=== PATIENT | female | born 1985 | race Caucasian/White ===

== ENCOUNTER 2020-06-13 19:44 | Observation (INO) | payer OTHER ==
[2020-06-13] MEDS: Lactated Ringer's 1,000 ML IV SCH (20:44)
[2020-06-13] MEDS ORDERED: Terbutaline Sulfate 1 MG/ML VIAL SC PRN (23:32)
[2020-06-13] MEDS ORDERED: hydrOXYzine Pamoate 25 mg Capsule PO PRN (23:32)
[2020-06-13] MEDS ORDERED: hydrALAZINE 20 MG/ML VIAL SLOW IVP PRN (23:43)
[2020-06-13] MEDS ORDERED: Acetaminophen 500 MG TAB PO PRN (23:43)
[2020-06-13] MEDS ORDERED: Butorphanol Tartrate 1 MG/ML VIAL SLOW IVP PRN (23:43)
[2020-06-13] MEDS ORDERED: Promethazine HCl 25 MG/ML VIAL IM PRN (23:43)
[2020-06-13] MEDS ORDERED: Ondansetron PF 4 MG/2 ML Vial IVP PRN (23:43)
[2020-06-14] MEDS: Lactated Ringer's 1,000 ML IV SCH ×2 (01:24→06:05)
[2020-06-14 04:03] VITALS: BMI 28.3
[2020-06-14 09:19] LABS: SARS-CoV-2 MS2 Positive; SARS-CoV-2 N Gene Negative; SARS-CoV-2 S Gene Negative; SARS-CoV-2 by NAA Not Detected (NotDetected); SARS-CoV-2 orf1ab Negative
--- NOTE | 2020-06-14 12:17 | PDOC.LDHP ---
Labor and Delivery H&P HPI: 34 y/o G2 P 1001 at 34 and 3 weeks presents after a fall outside on the porch letting her new dog out. No vaginal bleeding. Her abdomen was struck from the side. Good movement. No contractions felt on admission. Current gestational age (weeks): 34 Grav: 2 Para: 1 Abnormal US findings: No Current medications: pre-graham vitamins Allergies/Adverse Reactions: Allergies Allergy/AdvReac Type Severity Reaction Status Date / Time sulfamethoxazole Allergy Verified 06/13/20 23:39 [From Bactrim] trimethoprim [From Bactrim] Allergy Verified 06/13/20 23:39 Social history: none - Physical Exam Vital signs reviewed and normal: yes General: NAD, resting Heart: RRR Lungs: CTAB Abdomen: gravid Extremeties: no edema FHT: category 1 - Plan Plan: admit to L&D, other (Patient will be monitored for 4 hours, DC to home if atable. Thus far, no definitive reason for an ultrasound tonight, but I will do one later this week in clinic if patient/fetus remain stable.)
== END 2020-06-14 11:00 | disposition home health service (06) ==
LOC: L&D/OP 19:44 → L&D-LIB 06-14 03:57 → INTOOBSV 06-14 03:57
PROVIDERS: ADMIT Obstetrics & Gynecology; ATTEND Obstetrics & Gynecology
DX: Z04.3 Encounter for examination and observation following other accident (principal); Z3A.34 34 weeks gestation of pregnancy; Z88.1 Allergy status to other antibiotic agents; Z88.2 Allergy status to sulfonamides; Z20.828 Contact with and (suspected) exposure to other viral communicable diseases; W19.XXXA Unspecified fall, initial encounter
CPT/HCPCS: 36415; 87635; 99285; J3105; Q0177; U0003

== ENCOUNTER 2020-07-07 15:49 | Day surgery (SDC) | payer OTHER ==
[2020-07-07 16:20] VITALS: BMI 27.9
[2020-07-07] MEDS ORDERED: hydrALAZINE 20 MG/ML VIAL SLOW IVP PRN (16:41)
--- NOTE | 2020-07-07 17:06 | PDOC.LDHP ---
Labor and Delivery H&P Chief complaint: contractions HPI: 34 y/o at 37w6d, patient of Dr. Sarmiento, presents with ctx q3mins since 1am. Denies VB, LOF, or decreased FM. ROS neg for HEENT, cv, pulm, gi, gu, neuro, psych, skin, musculoskeletal or constitutional symptoms other than mentioned above. OB History Details: 1 8 years ago Current complications: none Past Medical History: None Current medications: pre- vitamins Previous surgical history: other (dental surgery) Allergies/Adverse Reactions: Allergies Allergy/AdvReac Type Severity Reaction Status Date / Time sulfamethoxazole Allergy Verified 06/13/20 23:39 [From Bactrim] trimethoprim [From Bactrim] Allergy Verified 06/13/20 23:39 - Physical Exam Vital signs reviewed and normal: yes General: NAD Lungs: nonlabored breathing Abdomen: gravid Extremeties: no edema FHT: category 1 (140s, mod variability, + accels, no decels) [place] contractions every: 23 mins - Vaginal Exam cm dilated: 4 (unchanged over 1 hour) Effacement: 75% Station: -3 - Assessment 34 y/o at 37w6d with no e/o active labor. status reassuring with reactive NST. - Plan -: D/c home with precautions. Advised to keep all appointments.
== END 2020-07-07 17:45 | disposition home or self-care (01) ==
LOC: L&D/OP 15:49
PROVIDERS: ATTEND Obstetrics & Gynecology
DX: O47.1 False labor at or after 37 completed weeks of gestation (principal); Z3A.37 37 weeks gestation of pregnancy; Z88.2 Allergy status to sulfonamides
CPT/HCPCS: 99282

== ENCOUNTER 2020-07-11 06:41 | Day surgery (SDC) | payer OTHER ==
[2020-07-11 07:09] VITALS: BMI 27.9
[2020-07-11] MEDS ORDERED: hydrALAZINE 20 MG/ML VIAL SLOW IVP PRN (08:19)
--- NOTE | 2020-07-11 08:43 | PRG ---
DATE OF SERVICE: 07/11/2020 PRIMARY OB: Dr. Mann Sarmiento. CHIEF COMPLAINT: Abdominal pains. HISTORY OF PRESENT ILLNESS: The patient is a 34-year-old, G2, P1 female with an intrauterine at 38 weeks and 3 days, presenting to Labor and Delivery with new onset abdominal pains over the last several days. She reports that today the pains have gotten stronger and came for evaluation. She was last seen here on the 07 of July, was noted to be 4 cm dilated, 75% effaced at the time. The patient denies leakage of fluid or vaginal bleeding. She denies fever, cough, headache, chest pain, shortness of breath, nausea, vomiting, diarrhea, constipation, hip problems, knee problems, muscle weakness. She denies any new rashes. She denies again vaginal bleeding, leakage of fluid, urinary urgency or frequency. PAST MEDICAL HISTORY: Negative. PAST SURGICAL HISTORY: Negative. ALLERGIES: BACTRIM. MEDICATIONS: vitamins. OB LABS: Unavailable at the time of dictation. REVIEW OF SYSTEMS: Per HPI. SOCIAL HISTORY: Denies drug, alcohol, or tobacco use. PHYSICAL EXAMINATION: VITAL SIGNS: Blood pressure is 124/78, heart rate is 75, respiratory rate of 18, saturating 99% on room air. GENERAL: She appears to be in no acute distress. She is sitting up on a birthing ball. HEENT: Her head is normocephalic and atraumatic. LUNGS: Clear to auscultation bilaterally. HEART: Regular rate and rhythm. ABDOMEN: Gravid and soft. She has no CVA tenderness. EXTREMITIES: Nontender. : Exam per nursing staff is 475 and -3 station. heart tracing shows the fetus with a baseline in the 120s with moderate long-term variability, positive 15 x 15 accelerations, no decelerations. Contractions are visible at about every 4 to 5 minutes. ASSESSMENT AND PLAN: The patient is a 34-year-old G2, P1 female with an intrauterine at 38 weeks and 3 days, here for evaluation of labor. Fetus has a category 1 tracing and reactive NST. Cervical exam is unchanged from her last visit about four days ago. We will recheck her in about 3 hours to see if there is any cervical change and will make disposition at that time. Dr. Nash is the oncoming physician who will be taking over care. Job ID: [id number]
--- NOTE | 2020-07-11 09:58 | PDOC.EVN ---
Event Note - Event Note Event Note: Report received earlier from Dr. Kahn. Term IUP at 4 cm with UCs. OBS x3 hours, no cervical change noted. FHTs stable. Will Dc home. Has appt. with Dr. Sarmiento later today. Precautions reviewed.
== END 2020-07-11 10:19 | disposition home or self-care (01) ==
LOC: L&D/OP 06:41
PROVIDERS: ATTEND Obstetrics & Gynecology
DX: O99.891 Other specified diseases and conditions complicating pregnancy (principal); R10.9 Unspecified abdominal pain; Z3A.38 38 weeks gestation of pregnancy; Z88.2 Allergy status to sulfonamides
CPT/HCPCS: 99282

== ENCOUNTER 2020-07-11 22:19 | Inpatient (IN) | payer OTHER ==
[~2020-07-11 22:19] MED LIST: Bupivacaine 0.25% HCL 30 ML VIAL ONE
[2020-07-11] MEDS: Lactated Ringer's 1,000 ML IV SCH (23:00)
[2020-07-11] MEDS ORDERED: Lidocaine 1% (PF) 30 ML VIAL ONE (23:44)
[2020-07-11] MEDS ORDERED: NS w/ Oxytocin 30 units 500 ML ONE (23:45)
[2020-07-11 23:47] VITALS: BMI 28.8
[2020-07-11 23:54] LABS: Mean Corpuscular HGB CONC 31.7 g/dL (32.0-36.0); Mean Corpuscular Hemoglobin 25.5 pg (27.0-31.0); Mean Corpuscular Volume 80.3 fL (78.0-98.0); Mean Platelet Volume 9.5 fL (7.4-10.4); Platelet Count 212 thou/uL (130-400); RBC Distribution Width 14.9 % (11.5-14.5); Red Blood Cell (RBC) Count 3.91 mill/uL (4.20-5.40); White Blood Cell (WBC) Count 9.5 thou/uL (4.8-10.8)
[2020-07-11] MEDS ORDERED: Fentanyl 4 mcg/Bup 0.1% Cadd 100 ML ONE (23:54)
[2020-07-12] MEDS ORDERED: Misoprostol 200 MCG TAB RC PRN (00:15)
[2020-07-12] MEDS ORDERED: hydrALAZINE 20 MG/ML VIAL SLOW IVP PRN ×2 (00:15→05:41)
[2020-07-12] MEDS ORDERED: Carboprost 250 MCG/ML AMP IM PRN (00:15)
[2020-07-12] MEDS ORDERED: HYDROcodone/Acetaminophen 5/325 mg Tablet PO PRN ×4 (00:15→05:41)
[2020-07-12] MEDS ORDERED: NS w/ Oxytocin 30 units 500 ML IV SCH ×3 (00:15→06:00)
[2020-07-12] MEDS ORDERED: Ondansetron PF 4 MG/2 ML Vial IVP PRN ×2 (00:15→05:41)
[2020-07-12] MEDS ORDERED: Ibuprofen 800 MG TAB PO PRN (00:15)
[2020-07-12] MEDS ORDERED: Lidocaine 1% (PF) 30 ML VIAL SC PRN (00:15)
[2020-07-12] MEDS ORDERED: Methylergonovine 0.2 MG/ML VIAL IM PRN ×2 (00:15→05:41)
[2020-07-12] MEDS ORDERED: Promethazine HCl 25 MG/ML VIAL IM PRN ×2 (00:15→05:41)
[2020-07-12] MEDS ORDERED: Diphenoxylate HCl/Atropine Tablet PO PRN ×2 (00:15)
[2020-07-12] MEDS ORDERED: NS / Oxytocin 40 units/1000ml 1,000 ML IV SCH (00:15)
[2020-07-12 00:31] LABS: Syphilis Antibody Nonreactive (Nonreactive); Syphilis Antibody Index 0.05 S/CO (<1.00 Non-Reactive)
[2020-07-12 00:32] LABS: HBSAg Index 0.21 S/CO (0-0.99); Hep B Surf Ag Non-Reactive S/CO (NonReactive)
[2020-07-12] MEDS: Lactated Ringer's 1,000 ML IV SCH (01:20)
[2020-07-12] MEDS ORDERED: diphenhydrAMINE 25 MG CAP PO PRN (05:41)
[2020-07-12] MEDS ORDERED: Zolpidem Tartrate 5 MG TAB PO PRN (05:41)
[2020-07-12] MEDS ORDERED: Lanolin Ointment 7 GM TUBE TOP PRN (05:41)
[2020-07-12] MEDS ORDERED: Milk Of Magnesia 30 ML UDCUP PO PRN (05:41)
[2020-07-12] MEDS ORDERED: Benzocaine-Menthol 82.5 ML CAN TOP PRN (05:41)
[2020-07-12] MEDS ORDERED: Misoprostol 200 MCG TAB VAG PRN (05:41)
[2020-07-12] MEDS ORDERED: Varicella virus, LIVE 0.5 ML VIAL SC ONE (05:41)
[2020-07-12] MEDS ORDERED: Preparation H Ointment 28 GM TUBE PR PRN (05:41)
[2020-07-12] MEDS ORDERED: Bisacodyl 10 MG SUPP PR PRN (05:41)
[2020-07-12] MEDS ORDERED: Ibuprofen 800 MG TAB PO SCH (06:00)
[2020-07-12] MEDS ORDERED: Measles/Mumps/Rubella 10 MCG/0.5 ML VIAL SC ONE (06:00)
[2020-07-12] MEDS ORDERED: Docusate Calcium (SURFAK) 240 MG CAP PO SCH (09:00)
[2020-07-12] MEDS ORDERED: Adacel (T-DAP) 0.5 ML SYRINGE IM ONE (09:00)
[2020-07-12] MEDS ORDERED: Prenatal Vitamin 1 TAB PO SCH (09:00)
[2020-07-12] MEDS: Ferrous Sulfate 325 MG TAB PO SCH ×2 (09:13→17:49)
[2020-07-12 16:57] LABS: SARS-CoV-2 NAA Rapid Test Not Detected (NotDetected)
--- NOTE | 2020-07-12 17:43 | PDOC.LDHP ---
Labor and Delivery H&P Chief complaint: contractions, loss of fluid HPI: 34 y/o at 38 weeks with SROM and 6 cm dilation in labor. Current gestational age (weeks): 38 Current medications: pre-graham vitamins Allergies/Adverse Reactions: Allergies Allergy/AdvReac Type Severity Reaction Status Date / Time sulfamethoxazole Allergy Verified 06/13/20 23:39 [From Bactrim] trimethoprim [From Bactrim] Allergy Verified 06/13/20 23:39 Social history: none - Physical Exam Vital signs reviewed and normal: yes General: NAD Heart: RRR Lungs: CTAB Abdomen: gravid Extremeties: no edema FHT: category 1 - Assessment L&D Assessment: term patient in labor - Plan Plan: admit to L&D
--- NOTE | 2020-07-12 17:45 | PDOC.PP ---
Post Progress Note Post Day #: 0 PO intake tolerated: yes Ambulation: yes Vital Signs (12 hours) Temp Pulse Resp BP Pulse Ox 07/12/20 17:07 97.8 F 83 12 112/54 L 98 07/12/20 11:58 97.7 F 72 20 110/56 L 96 07/12/20 10:30 98.2 F 72 16 113/56 L 98 07/12/20 08:45 98.2 F 76 16 106/55 L 98 Weight Weight 168 lb Result Diagrams: 07/11/20 23:41 Additional Labs: Post Labs Hep Bs Antigen Non-Reactive S/CO (NonReactive) 07/11/20 23:41 Blood Type B NEGATIVE 07/11/20 23:41 - Assessment/Plan Patient requesting early discharge so that she can travel with her baby to [facility]. Patient is stable, no vaginal injuries.
[2020-07-12] MEDS ORDERED: Sodium Chloride 0.9% 10 ML ONE (20:17)
[2020-07-12 22:31] VITALS: BP 120/65; TEMP 98
== END 2020-07-12 22:00 | disposition home or self-care (01) | DRG 807 ==
LOC: L&D/OP 22:19 → L&D 07-12 03:27 → 3SW 07-12 08:42
PROVIDERS: ADMIT Obstetrics & Gynecology; ATTEND Obstetrics & Gynecology
PROC: 10E0XZZ Delivery of Products of Conception, External Approach (ICD-10-PCS; principal; 2020-07-12)
PROC: 30233S1 Transfusion of Nonautologous Globulin into Peripheral Vein, Percutaneous Approach (ICD-10-PCS; 2020-07-12)
DX: O77.0 Labor and delivery complicated by meconium in amniotic fluid (principal); Z37.0 Single live birth; Z3A.39 39 weeks gestation of pregnancy; Z20.822 Contact with and (suspected) exposure to COVID-19; Z88.2 Allergy status to sulfonamides; Z88.8 Allergy status to other drugs, medicaments and biological substances; R10.9 Unspecified abdominal pain
CPT/HCPCS: 36415; 51702; 85461; 86780; 86850; 86870; 86900; 86901; 87340; 90384; 96372; 99282; 99285; J2001; J2590; S0020; U0002